=== PATIENT | female | born 1995 | race Caucasian/White ===

== ENCOUNTER → 2020-02-01 | Outpatient (CLI) | payer BC, SELFPAY ==
[2020-02-01 14:19] VITALS: BMI 27.4
[2020-02-03 20:07] LABS: Chlamydia By Nucleic Acid AMP Negative (Negative)
[2020-02-03 20:54] LABS: Gonococcus By Nucleic Acid AMP Negative (Negative)
[2020-02-08 16:23] LABS: HPV Reflexed? NOT INDICATED
== END | disposition home or self-care (01) ==
LOC: LABSPEC 17:01
PROVIDERS: PCP Family Medicine; Referring Provider Nurse Practitioner Women's Health; Visit Provider Nurse Practitioner Women's Health
DX: N89.8 Other specified noninflammatory disorders of vagina (principal); Z12.4 Encounter for screening for malignant neoplasm of cervix
CPT/HCPCS: 87070; 87205; 87491; 87591; 88175; G0145

== ENCOUNTER → 2020-02-15 | Outpatient (CLI) | payer BC, SELFPAY ==
--- NOTE | 2020-02-15 | ECC_PTH ---
PATIENT: UZAIR ROJO [facility] U#:[id number] AGE/SX: 24/F ROOM: RE02/15/[address]: Dr. Alma Eng MD : 1995 BED: DIS: 02/15/2020 SPEC #: [id number] RECD: 02/15/20 18:07 STATUS: VADIM BARRERAAkilah #: [id number] RAFAEL: 02/15/20 00:[address]: Alma Eng DEPT: SURGICAL PATHOLOGY RECD BY: Kelvin Renee Tissues: A - Endocervical B - Uterine cervix, NOS Procedures: Surgery Specimen Level IV HEADER OPERATION: Colposcopy PRE-OP DIAGNOSIS: LGSIL TISSUE SUBMITTED: A - ECC, B - 5 o'clock MICROSCOPIC DIAGNOSIS A. Endocervix, curettings (cell block): Rare detached squamoid cells with moderate to severe squamous dysplasia (HSIL). See comment. B. Cervix at 5 o'clock, biopsy: Moderate to severe squamous dysplasia, SARAN II-III (HSIL). Squamous metaplasia and chronic inflammation. See comment. AM:taylor 02/17/20 COMMENT A & B. Results from immunohistochemistry ([id number]) for surrogate HPV marker (p16) will be reported separately. MICROSCOPIC DESCRIPTION Slides are reviewed. GROSS DESCRIPTION A - Received in fixative is one container labeled with the patient's name and designated endocervix curettings. The specimen consists of a scant amount of soft tissue. The specimen is totally submitted for cell block preparation. B - Received in fixative is one container labeled with the patient's name and designated 5 o'clock. The specimen consists of one irregular fragment of light okeefe soft tissue that measures 0.2 x 0.1 x <0.1 cm. The specimen is totally submitted in one cassette. / AM:taylor 02/16/20 TC:0 CPT: 83252 x2
--- NOTE | 2020-02-15 | IMM_PTH ---
PATIENT: UZAIR ROJO LOC: [facility] U#:[id number] AGE/SX: 24/F ROOM: RE02/15/[address]: Dr. Amla Eng MD : 1995 BED: DIS: 02/15/2020 SPEC #: [id number] RECD: 02/17/20 11:58 STATUS: VAIDM REQ #: [id number] RAFAEL: 02/15/20 00:[address]: Alma Eng DEPT: IMMUNOHISTOCHEMISTRY RECD BY: Doris Contreras Tissues: A - Endocervical B - Uterine cervix, NOS Procedures: p16 (initial) KI-67 (add) P16 (add) PHYSICIAN & INSTITUTION [place] [id number] SPECIMEN INFORMATION: Tissue Source: A - ECC, B - Cervix at 5 o'clock Clinical Info: [facility] Specimen Number: [id number] A & B CPT code: 24886 x2, 86932 x2 METHODOLOGY: Deparaffinized sections of prefer/formalin-fixed tissue or PAP/DQ stained slides are incubated with monoclonal/polyclonal antibodies/oligonucleotide probes. Localization is made via biotin free immunoperoxidase method. Appropriate controls are performed and reacted as expected. Results on target cell population are indicated in the following table: RESULTS: ANTIBODY / CLONE RESULT Block A P16 (E6H4) positive, block-like Ki-67 (30-9) positive, high Block B P16 (E6H4) positive, block-like Ki-67 (30-9) positive, high These tests were developed and their performance characteristics determined by [facility]. They may not have been cleared or approved by the U.S. Food and Drug Administration. The FDA has determined that such clearance or approval is not necessary. The above immunohistochemical/dualISH markers are ordered and reviewed by the Pathologist. INTERPRETATION: A. Endocervix, curettage: Moderate to severe squamous dysplasia (HSIL). B. Cervix at 5 o'clock, biopsy: Moderate to severe squamous dysplasia (HSIL). AM:taylor 02/18/20
[2020-02-15 15:03] VITALS: BMI 27.8
== END | disposition home or self-care (01) ==
PROVIDERS: Visit Provider Obstetrics & Gynecology
DX: R87.612 Low grade squamous intraepithelial lesion on cytologic smear of cervix (LGSIL) (principal)
CPT/HCPCS: 88305; 88341; 88342

== ENCOUNTER 2020-03-14 12:28 | Day surgery (SDC) | payer BC, SELFPAY ==
[2020-03-03 13:53] VITALS: BMI 28.0
[2020-03-10 13:42] LABS: Hematocrit 40.9 % (37-47); Hemoglobin 13.7 g/dL (12.0-15.0); Mean Corp Hgb Conc 33.5 g/dL (32-36); Mean Corpuscular Hgb 31.8 pg (27.0-32.0); Mean Corpuscular Volume 94.9 fL (81-99); Mean Platelet Vol. 10.1 fl (6.2-12.0); Platelet Count 292 K/mm3 (150-450); RBC Distribution Width CV 11.5 % (11.6-14.6); RBC Distribution Width SD 40.4 fl (35.1-43.9); Red Blood Count 4.31 M/mm3 (4.2-5.4); White Blood Count 5.5 K/mm3 (4.4-11.0)
[2020-03-14] VITALS (9 sets, daily range): BP systolic 109–119; BP diastolic 66–80; PULSE 70–96; RESP 16; TEMP 36.9–37; O2SAT 97–100; BMI 28.1
--- NOTE | 2020-03-14 | IMM_PTH ---
PATIENT: UZAIR ROJO [place] [facility] [id number] AGE/SX: 24/F ROOM: RE03/14/[address]: Dr. Alma Eng MD : 1995 BED: DIS: 03/14/2020 SPEC #: [id number] RECD: 03/16/20 11:42 STATUS: VADIM REQ #: [id number] RAFAEL: 03/14/20 00:[address]: Alma Eng DEPT: IMMUNOHISTOCHEMISTRY RECD BY: Doris Contreras ENTERED: 03/16/20 11:43 SP TYPE: IMMUNO OTHR DR: Dr. Markus Valdez MD Tissues: A - UTERINE CERVIX LEEP Procedures: p16 (initial) KI-67 (add) PHYSICIAN & INSTITUTION [place] [phone] SPECIMEN INFORMATION: Tissue Source: A - LEEP of cervix Clinical Info: SARAN III with severe dysplasia Specimen Number: [id number] A1 & A4 CPT code: 77205, 85027 x3 METHODOLOGY: Deparaffinized sections of prefer/formalin-fixed tissue or PAP/DQ stained slides are incubated with monoclonal/polyclonal antibodies/oligonucleotide probes. Localization is made via biotin free immunoperoxidase method. Appropriate controls are performed and reacted as expected. Results on target cell population are indicated in the following table: RESULTS: ANTIBODY / CLONE RESULT Block A1 P16 (E6H4) positive, block staining Ki-67 (30-9) positive, moderate to high Block A4 P16 (E6H4) positive, block staining Ki-67 (30-9) positive, moderate to high These tests were developed and their performance characteristics determined by [facility]. They may not have been cleared or approved by the U.S. Food and Drug Administration. The FDA has determined that such clearance or approval is not necessary. The above immunohistochemical/dualISH markers are ordered and reviewed by the Pathologist. INTERPRETATION: A. Cervix, LEEP conization: Mild and focal moderate squamous dysplasia. SJ:taylor 03/17/20
--- NOTE | 2020-03-14 12:20 | PCM.HPOB.BLA ---
- Problem List (1) HGSIL (high grade squamous intraepithelial dysplasia) Status: Acute History and Physical Date of Admission: 03/14/20 Intake Vital Signs 03/03/20 Height 5 ft 4 in 03/03/20 Weight: 163 lb 6 oz 03/03/20 BMI 28.0 03/03/20 BP 106/66 Intake Visit Reasons: Discuss biopsies Paper Feeder Required: No Is patient in pain?: No Allergies No Known Allergies Allergy (Verified 03/03/20 13:53) Medications bupropion HCl 150 mg tablet,12 hr sustained-release 150 mg PO BID 02/01/20 [History Confirmed 03/03/20] clobetasol 0.05 % topical cream 1 applic TOPICAL .COMPLEX #15 g 02/01/20 [Rx Confirmed 03/03/20] levonorgestrel 20 mcg/24 hours (5 yrs) 52 mg intrauterine device 1 device INTRAUTERINE ONCE 02/01/20 [History Confirmed 03/03/20] Post menopausal: No Patient : No : No PFSH Medical History Anxiety and depression (Acute) Surgical History History of surgery on arm (Acute) Family History Mother Diabetes Father Heart disease Cardiomyopathy Social History (Updated 03/03/20 @ 16:[address] Alma Eng MD) Smoking Status: Never smoker alcohol intake: never substance use type: does not use caffeine: No what type of physical activity do you participate in: weight training frequency: 5-6 times per week seatbelt use: always do you feel safe at home: Yes additional social history: [employer] in [facility] Discuss biopsies: Details: UZAIR ROJO is a 24 year old who presents for results follow-up after colposcopy. Patient denies complaints today. Pregancy History 0 Elective abortions Hx Para Spontaneous abortions Hx # Term Pregnancies Ectopic pregnancies Hx # Pregnancies Multiple births # of living children ROS Const Reports system reviewed and no additional complaints, except as documented Card Reports system reviewed and no additional complaints, except as documented Resp Reports system reviewed and no additional complaints, except as documented GI Reports system reviewed and no additional complaints, except as documented Reports system reviewed and no additional complaints, except as documented Musc Reports system reviewed and no additional complaints, except as documented all other systems reviewed and negative Exam Const General: cooperative, healthy appearing, comfortable, well developed, well groomed Neck Neck: normal visual inspection, full ROM Resp Effort & Inspection: normal respiratory effort, able to speak in complete sentences, symmetric chest movement Cardio Rate: regular rate Skin General: no rashes or lesions noted, elasticity normal, turgor normal Lesions: no lesions Rashes: no rashes Neuro General: alert, awake, oriented x3 Cranial Nerves: CN's II-XI intact bilaterally, PERRL, EOM intact bilaterally Cognition: normal cognition Speech: speech normal Gait: normal gait Extrem General: normal to inspection, full ROM, no pedal edema Psych Appearance: grossly normal Mental Status: mental status grossly normal Mood: congruent mood Affect: normal affect Speech and Movement: speech and movement normal Attitude: cooperative Thought Process: normal Thought Content: normal Assessment & Plan 1. SARAN III with severe dysplasia D06.9 Plan Patient presents for colposcopy results. Pap was LSIL. Colpo results showed: A. Endocervix, curettings (cell block):Rare detached squamoid cells with moderate to severe squamous dysplasia (HSIL).See comment.B. Cervix at 5 o?clock, biopsy:Moderate to severe squamous dysplasia, SARAN II-III (HSIL).Squamous metaplasia and chronic inflammation Discussed with patient that with SARAN II-III recommend proceeding with excisional procedure (LEEP). The risks, benefits, indications, and alternatives to the procedure were discussed with the patient including bleeding, infection, and damage to surrounding structures. Agreeable to blood products if medically necessary. Discussed risk of infection relatively low, but would typically present with foul smelling discharge or fevers after delivery. Discussed risk of damage to cervix and uterus. Discussed that this can rarely result in excessive bleeding that could potentially result in need for hysterectomy. Also discussed possible impact on future fertility. Patient reports that she has no plans to have children. All questions answered and patient agrees to proceed. Handouts provided from up-to-date and ACOG regarding procedure. Coding Level of Care Code Off vis,est,level 3 Diagnoses SARAN III with severe dysplasia D06.9 UPDATE- I have seen the patient and performed any clinically relevant updates to the history and physical exam. Alma Eng MD
[2020-03-14 12:58] LABS: Internal QC Validated? YES +Cl - CLEAR BKGD; Pregnancy, Urine Negative Negative
[2020-03-14] MEDS: Lactated Ringers 1,000 ML 100 ML IV (13:12)
--- NOTE | 2020-03-14 14:15 | CER_PTH ---
PATIENT: UZAIR ROJO [place] [facility] [place][id number] AGE/SX: 24/F ROOM: RE03/14/[address]: Dr. Alma Eng MD : 1995 BED: DIS: 03/14/2020 SPEC #: [id number] RECD: 03/15/20 07:40 STATUS: VADIM REAkilah #: [id number] RAFAEL: 03/14/20 14:[address]: Alma Eng DEPT: SURGICAL PATHOLOGY RECD BY: Roxanna Moseley ENTERED: 03/15/20 07:52 SP TYPE: CERV OTHR DR: Dr. Markus Valdez MD Tissues: A - UTERINE CERVIX LEEP B - Endocervical Procedures: Surgery Specimen Level IV Surgery Specimen Level V HEADER OPERATION: LEEP cone PRE-OP DIAGNOSIS: SARAN III with severe dysplasia TISSUE SUBMITTED: A - LEEP of cervix, B - Endocervical curettings MICROSCOPIC DIAGNOSIS A. Cervix, LEEP conization: Mild and moderate squamous dysplasia with HPV changes (HGSIL and SARAN I-II). Chronic cystic cervicitis and squamous metaplasia. Resection margins are free of dysplastic changes. See comment. B. Endocervical curettings: Fragments of benign endocervical epithelium, blood and mucous, negative for dysplasia. SJ:rg 03/16/20 COMMENT A. Immunohistochemistry ([id number]) for surrogate HPV marker (p16) supports the above diagnosis. Please make reference to previous specimen ([id number]) endocervix, curettings with diagnosis of rare detached squamoid cells with moderate to severe squamous dysplasia and cervix at 5 o'clock, biopsy with diagnosis of moderate to severe squamous dysplasia. This case has been reviewed in consultation with Dr. Barahona who concurs with the above diagnosis. MICROSCOPIC DESCRIPTION Slides are reviewed. GROSS DESCRIPTION A - Received in fixative is one container labeled with the patient's name and designated LEEP of cervix. The specimen consists of a okeeef, indurated piece of tissue consistent with LEEP conization measuring 1.7 x 1.7 cm and up to 1 cm in length. The cervical opening is slit-like in contour. Focal mucoid tissue is noted adherent to the cervix. No mucosal lesion is identified. The mucosal margin is inked black and endocervical margin is inked blue. The specimen is not oriented. Sections do not reveal any mass lesion. The entire specimen is submitted in four cassettes with each cassette containing one quadrant. B - Received in fixative is one container labeled with the patient's name and designated endocervical curettings. The specimen consists of multiple fragments of hemorrhagic mucoid tissue that in aggregate measure 2.5 x 0.5 x 0.1 cm. The specimen is totally submitted in one cassette. / SJ:rg 03/15/20 TC:5 CPT: 93809, 96327
--- NOTE | 2020-03-14 15:03 | PCM.DC.LEE ---
Discharge Diet: No Restrictions Discharge Activity: Return to Normal Activity, May not drive while taking narcotic pain medications. May resume sexual activity in: 4 weeks - nothing in the vagina for 4 weeks. Call your doctor if you observe: Fever of 101 or Higher, Using more than one pad per hour Allergies/Adverse Reactions: Allergies No Known Allergies Allergy (Verified 03/14/20 12:39) Medications to take at Discharge bupropion HCl 150 mg tablet,12 hr sustained-release 150 mg PO BID 02/01/20 levonorgestrel 20 mcg/24 hours (5 yrs) 52 mg intrauterine device 1 device INTRAUTERINE ONCE 02/01/20 Ibuprofen [Motrin] 600 mg PO Q6H PRN PRN #30 tab 03/14/20 Ondansetron HCl [Zofran] 4 mg PO 4X/DAY PRN PRN #30 tab 03/14/20 Oxycodone [Oxyir] 5 mg PO Q6H PRN PRN 7 Days #5 tab 03/14/20 The following prescriptions were given: Ibuprofen [Motrin] 600 mg PO Q6H PRN PRN #30 tab PRN Reason: Pain Transmission Status[id number] Oxycodone [Oxyir] 5 mg PO Q6H PRN PRN 7 Days #5 tab PRN Reason: Pain Score 6-10/10 Transmission Status: Received by [facility] Ondansetron HCl [Zofran] 4 mg PO 4X/DAY PRN PRN #30 tab PRN Reason: Nausea Transmission Status: Received by [id number] Primary Care Physician: Markus Valdez MD [Primary Care Provider] - Test Results: Test results from this visit will be discussed in further detail at your follow-up appointment, if applicable.
[2020-03-14] MEDS: Iodine/Potassium Iodide 14ML Bottle 1 DRP TOPICAL (15:30)
[2020-03-14] MEDS: FERRIC SUBSULFATE 8 GM SOLN (15:31)
[2020-03-14] MEDS: Lactated Ringers 1,000 ML 1000 ML IV (15:53)
--- NOTE | 2020-03-14 17:13 | PCM.OPRPT ---
Problem List (1) HGSIL (high grade squamous intraepithelial dysplasia) Status: Acute Report of Operation Date of Procedure: 03/14/20 Pre-Operative Diagnosis: SARAN III, positive ECC Post-Operative Diagnosis: Same Surgery/Procedure Performed:: LEEP, ECC Description of Surgical Findings:: Normal-appearing cervix. Small nonstaining area at that squamocolumnar junction at 2:00. private duty lpn: None Type of Anesthesia:: MAC Specimen's removed: LEEP of cervix, ECC Estimated Blood Loss (mL): 10 cc Description of Procedure: Patient was taken to the operating room where anesthesia was obtained without difficulty. She was prepped and draped in the dorsal lithotomy position with yellowfin stirrups. A insulated speculum was placed in the vagina and good visualization of the cervix was noted. The patient's IUD strings were tucked inside the cervical canal to try to preserve the strings. Lugol's solution was applied and the above findings were noted. Cc of 1% lidocaine were used to perform a paracervical block. A 1 cm loop was used on 70 W of pure cut energy to perform a LEEP procedure in 1 pass. An ECC was then performed. Hemostasis was attained with the rollerball. The IUD strings were then teased out of the endocervical canal and noted to be intact. Monsel solution was then applied to the LEEP bed. Hemostasis was noted. The procedure was deemed complete. All counts were correct x2 the. The patient was awakened from anesthesia and taken recovery room in stable condition. - Complications None - Admit VTE Documentation VTE Present on Admission: No VTE Mechan Device Prophylaxis: [facility] Prophylaxis ordered?: No Multi Select Codes - Urinary/Genital Urinary/Genital CPT Codes: 43392 Endocervical curettage, 86723 LEEP
== END 2020-03-14 16:45 | disposition home or self-care (01) ==
LOC: SDC 12:31 → AC 12:37
PROVIDERS: Anesthesiology; PCP Family Medicine; Referring Provider Obstetrics & Gynecology; Visit Provider Obstetrics & Gynecology
PROC: 0UBC7ZZ Excision of Cervix, Via Natural or Artificial Opening (ICD-10-PCS; CPT 57522; principal; 2020-03-14 14:00)
DX: D06.9 Carcinoma in situ of cervix, unspecified (principal); Z11.59 Encounter for screening for other viral diseases; F41.9 Anxiety disorder, unspecified; F32.9 Major depressive disorder, single episode, unspecified; Z79.899 Other long term (current) drug therapy
CPT/HCPCS: 00940; 57522; 36415; 81025; 85027; 86850; 86900; 86901; 87426; 88305; 88307; 88341; 88342; J7120; J2405

== ENCOUNTER → 2020-09-28 | Outpatient (CLI) | payer OTHER, SELFPAY ==
[2020-09-28 15:09] VITALS: BMI 28.3
[2020-10-03 20:24] LABS: HPV APTIMA, High Risk Negative (Negative)
== END | disposition home or self-care (01) ==
LOC: LABSPEC 16:37
PROVIDERS: PCP Family Medicine; Visit Provider Obstetrics & Gynecology
DX: R87.613 High grade squamous intraepithelial lesion on cytologic smear of cervix (HGSIL) (principal)
CPT/HCPCS: 87624; 88175; G0145

== ENCOUNTER 2021-06-20 16:49 | Outpatient (CLI) | payer OTHER, SELFPAY ==
[2021-06-27 00:06] LABS: HPV Genotype 16, Aptima Negative (Negative)
[2021-06-27 14:21] LABS: HPV APTIMA, High Risk Positive (Negative); HPV Genotype 18,45 Aptima Negative (Negative)
== END 2021-06-20 23:59 | disposition home or self-care (01) ==
LOC: LABSPEC 16:51
PROVIDERS: PCP Family Medicine; Visit Provider Obstetrics & Gynecology
DX: Z12.4 Encounter for screening for malignant neoplasm of cervix (principal)
CPT/HCPCS: 87624; 88175; G0145

== ENCOUNTER 2021-07-19 10:52 | Outpatient (CLI) | payer OTHER, SELFPAY ==
--- NOTE | 2021-07-19 10:30 | VUL_PTH ---
PATIENT: UZAIR ROJO LOC: [facility] U#:[id number] AGE/SX: 26/F ROOM: RE07/19/[address]: Dr. Tamara Bello MD : 1995 BED: DIS: 07/19/2021 SPEC #: [id number] RECD: 07/19/21 13:07 STATUS: VADIM HICKS #: [id number] RAFAEL: 07/19/21 10:[address]: Tamara Bello DEPT: SURGICAL PATHOLOGY RECD BY: Roxanna Moseley ENTERED: 07/19/21 13:30 SP TYPE: VULVA BX OTHR DR: MD Dr. Renay Waggoner DO Tissues: Vulva, NOS Procedures: Surgery Specimen Level IV HEADER OPERATION: Vulvar biopsy PRE-OP DIAGNOSIS: Lichen sclerosus TISSUE SUBMITTED: Vulva MICROSCOPIC DIAGNOSIS Vulva, biopsy: A piece of squamous mucosa with hyperkeratosis. See comment. JAYSON:taylor 07/20/2021 COMMENT Definite changes consistent with lichen sclerosus are not seen. Clinical correlation and appropriate follow up are necessary. MICROSCOPIC DESCRIPTION Slides are reviewed. GROSS DESCRIPTION Received is one container labeled with the patient's name and not further designated. The specimen consists of one irregular fragment of light okeefe soft tissue that measures 0.3 x 0.2 x 0.1 cm. The specimen is totally submitted in one cassette. / JAYSON:taylor 07/19/2021 TC:5 CPT: 47678
[2021-07-19 11:44] LABS: Estradiol 51.4 pg/mL; Follicle Stimulating Hormone 6.5 mIU/mL
[2021-07-19 11:46] LABS: Progesterone Level 0.88 ng/mL (See Comment)
[2021-07-21 22:42] LABS: Testosterone Free 4.6 pg/mL (0.0-4.2)
== END 2021-07-19 23:59 | disposition home or self-care (01) ==
LOC: PAVLAB 10:53 → LABSPEC 13:14
PROVIDERS: PCP Family Medicine; Referring Provider Obstetrics & Gynecology; Visit Provider Obstetrics & Gynecology
DX: N90.4 Leukoplakia of vulva (principal)
CPT/HCPCS: 36415; 82627; 82670; 83001; 84144; 84402; 88305; 82626

== ENCOUNTER 2021-07-24 11:44 | Outpatient (CLI) | payer OTHER, SELFPAY ==
--- NOTE | 2021-07-24 11:49 | US_ITS ---
STUDY: ULTRASOUND OF THE FEMALE PELVIS - COMPLETE REASON FOR EXAM: Female, 26 years old. Pelvic pain LMP: Unknown. TECHNIQUE: Transabdominal and Transvaginal TECHNICAL QUALITY: Adequate. COMPARISON: None. FINDINGS: The uterus is anteverted and is in a midline position. The uterus measures 6.1 x 3.6 x 3.1 cm. Normal uterine cervix. The endometrium measures 2.7 mm in thickness, and is hyperechoic. There is no demonstrated endometrial mass. There is no demonstrated myometrial mass. I.U.D. - The patient does have an I.U.D. IUD noted in satisfactory position The right ovary is visualized. The right ovary measures 3.6 x 2.8 x 2.7 cm. . There is no visualized right adnexal mass or complex lesion. There is normal arterial and normal venous vascularity. The left ovary is visualized. The left ovary measures 3.8 x 2.6 x 2.2 cm. There is normal arterial and normal venous vascularity. No suspicious adnexal mass. There are similar sized ovarian cysts along the periphery of both ovaries and a string of naye configuration suggesting underlying PCOS. Please confirm with lab results There is no fluid in the cul-de-sac. The bladder is sonographically normal US/Transvaginal Non- IMPRESSION: Sonographically normal uterus, IUD in satisfactory position Similar sized follicles around the periphery of both ovaries raises the likelihood of PCOS. Please correlate with lab results Electronically Signed: Jose Roberto Curtis MD at 10:19 EDT ,
--- NOTE | 2021-07-24 11:49 | US_ITS ---
STUDY: ULTRASOUND OF THE FEMALE PELVIS - COMPLETE REASON FOR EXAM: Female, 26 years old. Pelvic pain LMP: Unknown. TECHNIQUE: Transabdominal and Transvaginal TECHNICAL QUALITY: Adequate. COMPARISON: None. FINDINGS: The uterus is anteverted and is in a midline position. The uterus measures 6.1 x 3.6 x 3.1 cm. Normal uterine cervix. The endometrium measures 2.7 mm in thickness, and is hyperechoic. There is no demonstrated endometrial mass. There is no demonstrated myometrial mass. I.U.D. - The patient does have an I.U.D. IUD noted in satisfactory position The right ovary is visualized. The right ovary measures 3.6 x 2.8 x 2.7 cm. . There is no visualized right adnexal mass or complex lesion. There is normal arterial and normal venous vascularity. The left ovary is visualized. The left ovary measures 3.8 x 2.6 x 2.2 cm. There is normal arterial and normal venous vascularity. No suspicious adnexal mass. There are similar sized ovarian cysts along the periphery of both ovaries and a string of naye configuration suggesting underlying PCOS. Please confirm with lab results There is no fluid in the cul-de-sac. The bladder is sonographically normal US/Pelvic (Non ) IMPRESSION: Sonographically normal uterus, IUD in satisfactory position Similar sized follicles around the periphery of both ovaries raises the likelihood of PCOS. Please correlate with lab results Electronically Signed: Jose Roberto Curtis MD at 10:19 EDT ,
== END 2021-07-24 23:59 | disposition home or self-care (01) ==
LOC: US 11:46
PROVIDERS: PCP Family Medicine; Referring Provider Obstetrics & Gynecology; Visit Provider Obstetrics & Gynecology
DX: L90.0 Lichen sclerosus et atrophicus (principal)
CPT/HCPCS: 76830; 76856

== ENCOUNTER 2021-11-06 08:38 | Day surgery (SDC) | payer OTHER, SELFPAY ==
[2021-11-06] VITALS (8 sets, daily range): BP systolic 91–106; BP diastolic 57–71; PULSE 64–92; RESP 16; TEMP 36.2–36.5; O2SAT 94–98; BMI 30.1
--- NOTE | 2021-11-06 07:00 | PCM.HP.BLA ---
History and Physical Date of Admission: 11/06/21 R#: [id number] Acct: [id number] Name:UZAIR KAUFMAN Rep #: [id number] : 1995 ? ? Provider: Dr. Renay Sanchez, DO Age/Sex:? 26/F ? ? [place] [facility] [place] Status: Signed Intake Vital Signs ? 10/25/2213:43 10/25/2213:44 Height 5 ft 4 in 5 ft 4 in Weight: 175 lb 8 oz ? BMI 30.1 ? BP 110/72 ? Intake Visit Reasons:?BS and IUD removal Hat And Cap Opener Required: No Is patient in pain?: No Allergies No Known Allergies Allergy (Verified 10/25/21 14:43) Medications bupropion HCl 150 mg tablet,12 hr sustained-release (Wellbutrin SR) 150 mg PO BID 02/01/20 [History Confirmed 10/25/21] levonorgestrel 20 mcg/24 hours (7 yrs) 52 mg intrauterine device (Mirena) 1 device intrauterine ONCE 02/01/20 [History Confirmed 10/25/21] hydrocortisone 2.5 % topical ointment 1 applic topical BID #28.35 grams 07/20/21 [Rx Confirmed 10/25/21] spironolactone 50 mg tablet 50 mg PO DAILY #30 tabs 08/09/21 [Rx Confirmed 10/25/21] Post menopausal: No Patient : No : No PFSH Medical History? Anxiety and depression HGSIL (high grade squamous intraepithelial dysplasia) Surgical History? H/O LEEP History of surgery on arm Family History? Mother DiabetesFather Heart disease Cardiomyopathy Social History? Smoking Status:? Never smoker alcohol intake:? never substance use type:? does not use caffeine:? No what type of physical activity do you participate in:? weight training frequency:? 5-6 times per week seatbelt use:? always do you feel safe at home:? Yes additional social history:? singles- [employer] in [place] HPI BS and IUD removal Details: UZAIR ROJO is a 26 year old who presents for Pregancy History ? ? ? 0 ? Elective abortions ? Hx Para ? Spontaneous abortions ? Hx # Term Pregnancies ? Ectopic pregnancies ? Hx # Pregnancies ? Multiple births ? # of living children ? ROS Const ROS Unobtainable: All systems reviewed & are unremarkable except as noted in H Resp Resp: Reports system reviewed and no additional complaints, except as documented; Denies cough GI GI: Reports as per HPI Psych Psych: Reports system reviewed and no additional complaints, except as documented Exam Const General: cooperative, healthy appearing, comfortable and no acute distress HENMT Head: normal to inspection Neck Neck: normal visual inspection Resp Effort & Inspection: normal respiratory effort Skin General: no rashes or lesions noted Extrem General: normal to inspection Psych Appearance: grossly normal Speech and Movement: speech and movement normal Coding Level of Care Code Off vis,est,level 4 Diagnoses PCOS (polycystic ovarian syndrome)? E28.2 Hirsutism? L68.0 IUD contraception? Z97.5 Assessment and Plan Assessment and Plan (1) PCOS (polycystic ovarian syndrome): ?Status:?Acute (2) Hirsutism: ?Status:?Acute ?Comment: Lab evaluation for PCOS ruled out plan follow-up after lab testing.? Consider spironolactone. (3) IUD contraception: ?Status:?Acute ?Comment: Richar September 2017 Plan After discussing the patient's diagnosis and treatment plan options, patient wishes to proceed with surgical management.? I have discussed with the patient the risks, benefits, and alternatives of the procedure which include but are not limited to risks of anesthesia, bleeding, infection, possible damage to bowel, bladder, or surrounding vasculature which could lead to additional surgery to evaluate any complications.? Patient agrees to procedure and wishes to proceed.? ACOG/uptodate references given for additional information regarding procedure.? plan for laparoscopic bs and removal of IUD. consent signed UPDATE- I have seen the patient and performed any clinically relevant updates to the history and physical exam. Renay Sanchez, DO
[2021-11-06 09:34] LABS: Internal QC Validated? YES +Cl - CLEAR BKGD; Pregnancy, Urine Negative Negative
--- NOTE | 2021-11-06 09:36 | DCINST_ITS ---
Discharge Instructions Diet Discharge Diet: No restrictions Activity Discharge Activity: Return to Normal Activity, May Not Drive (for two weeks or while taking narcotic pain medications.), May Shower and May Take a Tub Bath (in 7 days) May resume sexual activity in: 1 week Weight Bearing Status: Full weight bearing Dressing / Incision Call your doctor if you observe: Using more than 1 pad per hour, Shortness of breath, Chest pain and Uncontrolled pain Suture Line Care: Avoid Pulling/Pushing and Avoid Pinching/Bending Remove Dressing in: 1 week (if present) Cleanse incision/area with: Soap & Water and Keep Dressing Clean & Dry Follow Up Care Please Follow Up With: Renay Sanchez DO When: Call to make an appointment with your doctor for a follow up incision check in 1-2 weeks. Test Results: Test results from this visit will be discussed in further detail at your follow- up appointment, if applicable. Discharge Plan Admission Primary Reason for Your Visit: laparoscopic bilateral salpingectomy Attending Provider: Renay Sanchez Primary Care Provider: Care Physician,Gia Primary Discharge Orders/Prescriptions Prescriptions: New ibuprofen 600 mg tablet 600 mg PO Q6H PRN (Reason: pain) 7 Days Qty: 30 0RF oxycodone-acetaminophen [Percocet] 5-325 mg tablet 1 tab PO Q4H PRN (Reason: pain) 3 Days Qty: 10 0RF ondansetron 4 mg tablet,disintegrating 4 mg PO Q8H PRN (Reason: nausea and vomiting) Qty: 14 0RF Continued bupropion HCl [Wellbutrin SR] 150 mg tablet sustained-release 12 hr 150 mg PO BID levonorgestrel 20 mcg/24 hours (5 yrs) 52 mg intrauterine device 20 mcg/24 hours (5 yrs) 52 mg intrauterine device 1 device intrauterine ONCE Rx Instructions: as a single dose Referrals / Follow Up: Care PhysicianGia Primary [Primary Care Provider] - Disposition Disposition (needs filled in before D/C Order can be placed): Home, Self Care
--- NOTE | 2021-11-06 10:15 | FALS_PTH ---
PATIENT: UZAIR ROJO [place] [facility] [place][id number] AGE/SX: 26 ROOM: RE11/06/[address]: Dr. Renay Sanchez DO : 1995 BED: DIS: 11/06/2021 SPEC #: [id number] RECD: 11/06/21 12:23 STATUS: VADIM FABIOLA #: [id number] RAFAEL: 11/06/21 10:[address]: Renay Sanchez DEPT: SURGICAL PATHOLOGY RECD BY: Kelvin Renee ENTERED: 11/06/21 13:13 SP TYPE: FALL TUBES OTHR DR: No Primary Care Phys Tissues: Fallopian tube Procedures: Surgery Specimen Level II HEADER OPERATION: Laparoscopic salpingectomy, IUD removal PRE-OP DIAGNOSIS: IUD contraception, desires sterilization TISSUE SUBMITTED: Bilateral fallopian tubes MICROSCOPIC DIAGNOSIS Bilateral fallopian tubes, salpingectomy: Bilateral fallopian tubes, no pathologic diagnosis. Bilateral paratubal cysts. JAYSON:taylor 11/07/2021 MICROSCOPIC DESCRIPTION Slides are reviewed. GROSS DESCRIPTION Received in fixative is one container labeled with the patient's name and designated bilateral fallopian tubes. The specimen consists of bilateral fallopian tubes including fimbrial ends measuring 6 cm in length and 0.6 cm in diameter and 5.5 cm in length and 0.6 cm in diameter. The fallopian tubes are not identified as right or left. Both fallopian tubes also show paratubal cysts measuring 0.5 cm in greatest dimension. Sections reveal unremarkable cut surfaces. Sheet Metal Installer sections are submitted in two cassettes as follows: 1 ? one fallopian tube and paratubal cyst, 2 ? second fallopian tube and paratubal cyst. / JAYSON:taylor 11/06/2021 TC:5 CPT: 54480 x2
[2021-11-06] MEDS: Bupivacaine Mpf 0.5% 30 ML VIAL (10:38)
--- NOTE | 2021-11-06 10:53 | OP.PCM_ITS ---
Problems Associated Problem List Diagnoses (1) IUD contraception: (2) Contraceptive management: Operative Report Date of Procedure: 11/06/21 preoperative diagnosis: desires permanent sterilization Postoperative diagnosis: Desires permanent sterilization Procedure: Laparoscopic bilateral salpingectomy and removal of IUD Surgeon: Dr. Renay Moss DO Sap Solution Manager Consultant: Mary Anne Mulligan Estimated blood loss: 5 cc Urine output: 300 cc Fluids: 1300 cc Details of the procedure: Patient was brought to the operating room where general anesthesia was found to be adequate. She was prepped and draped in the normal sterile fashion her legs were placed in stirrups a weighted speculum was placed in the vagina. The anterior lip of the cervix was grasped with a single-tooth tenaculum. The IUD was removed without difficulty using the ringed forceps. The uterus was sounded to 8 cm. A uterine manipulator was inserted without difficulty. The speculum was removed and gloves were changed. Attention was turned towards the abdomen. 0.5% Marcaine was injected into the umbilicus and a 5 mm incision was made with an 11 blade scalpel. A 5 mm trocar was inserted into the abdomen under direct visualization using the 5 mm laparoscope. A left lower quadrant 5 mm incision was also made followed by insertion of a 5 mm trocar. Approximately 5 cm above the pubic symphysis in the midline after Marcaine injection a mini grasper and was inserted into the abdomen under direct visualization. The uterus was elevated and manipulated to the right side the left fallopian tube was first grasped with a mini grasper and the underlying mesosalpinx was cauterized and cut to the level of the cornua using the LigaSure device. The fallopian tube was removed through the trocar. The same procedure was performed on the right side. both fallopian tubes were passed off for pathology analysis. Excellent hemostasis was noted at all operative sites. All instruments were removed from the abdomen and CO2 gas was escape from the abdomen. The skin was closed with a 4-0 Monocryl subcuticular stitch and sealed with surgical glue. The vaginal manipulator was removed and a vaginal sweep was performed no foreign objects were left in the vagina. The patient tolerated the procedure well sponge lap needle counts were correct x2 and she is now being brought to the recovery room in stable condition Complications: None Multi Select Codes Urinary/Genital Urinary/Genital CPT Codes: 55554 Laproscopic BS/O (laparoscopic bilateral sapingectomy and removal of intrauterine device. )
== END 2021-11-06 13:07 | disposition home or self-care (01) ==
LOC: SDC 08:45 → AC 08:46
PROVIDERS: Anesthesiology; Referring Provider Obstetrics & Gynecology; Visit Provider Obstetrics & Gynecology
PROC: (CPT 58661; principal; 2021-11-06 10:00)
DX: Z30.2 Encounter for sterilization (principal); E28.2 Polycystic ovarian syndrome; N83.8 Other noninflammatory disorders of ovary, fallopian tube and broad ligament; F41.9 Anxiety disorder, unspecified; F32.A Depression, unspecified; Z79.899 Other long term (current) drug therapy; Z30.432 Encounter for removal of intrauterine contraceptive device; L68.0 Hirsutism
CPT/HCPCS: 58661; 58301; 00840; 81025; 88302; J7120; J2405

== ENCOUNTER → 2023-04-08 | Outpatient (CLI) | payer OTHER, SELFPAY ==
[2023-04-12 17:07] LABS: HPV APTIMA, High Risk Negative (Negative)
== END | disposition home or self-care (01) ==
LOC: LABSPEC 16:54
PROVIDERS: Visit Provider Nurse Practitioner Women's Health
DX: Z12.4 Encounter for screening for malignant neoplasm of cervix (principal)
CPT/HCPCS: 87624; 88175; G0145

== ENCOUNTER → 2023-04-09 | Outpatient (CLI) | payer OTHER, SELFPAY ==
[2023-04-09 11:53] LABS: Hemoglobin A1c 4.9 % (3.8-5.6)
[2023-04-09 11:55] LABS: Vitamin D,25 Hydroxy 34.5 ng/mL
[2023-04-09 12:01] LABS: Cholesterol 192 mg/dL (200); High Density Lipoprotein 50 mg/dL; T4 Free Direct 1.08 ng/dL (0.76-1.46); Thyroid Stim Hormone (TSH) 2.74 uIU/mL (0.358-3.74); Triglycerides 201 mg/dL; Very Low Density Lipoprotein 40 mg/dL (5-40)
[2023-04-10 04:07] LABS: Thyroid Peroxidase AB < 9 IU/mL (0-34)
== END | disposition home or self-care (01) ==
PROVIDERS: Referring Provider Nurse Practitioner Women's Health; Visit Provider Nurse Practitioner Women's Health
DX: L68.0 Hirsutism (principal); E28.2 Polycystic ovarian syndrome; L70.9 Acne, unspecified; Z13.21 Encounter for screening for nutritional disorder
CPT/HCPCS: 36415; 80061; 82306; 83036; 84439; 84443; 86376

== ENCOUNTER 2023-09-03 12:52 | Emergency (ER) | payer OTHER, SELFPAY ==
[2023-09-03 12:54] VITALS: BP 133/99; PULSE 82; RESP 16; TEMP 36.7; O2SAT 98; BMI 28.8
--- NOTE | 2023-09-03 13:47 | EKG12_ITS ---
Test Reason : Blood Pressure : / mmHG Vent. Rate : 071 BPM Atrial Rate : 071 BPM P-R Int : 138 ms QRS Dur : 078 ms QT Int : 368 ms P-R-T Axes : 067 019 036 degrees QTc Int : 399 ms Normal sinus rhythm Low voltage QRS Borderline ECG Confirmed by MALATHI ROBLEDO, BARBARA ([id number]), news video editor MARLEN VALDEZ ([id number]) on 09/08/2023 10:04:34 AM Referred By: Confirmed By:ANAND SERVIN MD
[2023-09-03 13:52] VITALS: BP 137/57; PULSE 74; RESP 16; O2SAT 99
--- NOTE | 2023-09-03 13:53 | NURSING ---
NO OLD EKGS
[2023-09-03 14:00] VITALS: PULSE 73; RESP 16; O2SAT 99
--- NOTE | 2023-09-03 14:35 | EX.ED.VIS.PS ---
HPI HPI - Psych History of Present Illness Chief Complaint: Suicidal Informant: patient Narrative Narrative: 28-year-old female presenting to the emergency room with depression and anxiety. Patient states that for most of her post adolescent life she has suffered from anxiety and depression. She states she has been to therapy seen multiple providers and has tried medications. Most recently was on Wellbutrin which was tapered off at the end of last year. 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 She states that she has good responsibility with her work but she thinks about it all the time. She states that she constantly worries. She woke up yesterday feeling dramatically different from a mental health standpoint than she has in the past. She is afraid that she may harm herself. She has no specific plan and does not feel intent. She has never self-harm in the past. She states she has reached out to family and her significant other and has not gotten the support that she feels she needs. PFSH PFSH Medical History Anxiety and depression HGSIL (high grade squamous intraepithelial dysplasia) History of IBS Marijuana use Non-smoker Wears contact lenses Wears glasses Allergy/AdvReac Type Severity Reaction Status Date / Time No Known Allergies Allergy Verified 09/03/23 12:58 Family History Mother Diabetes Father Heart disease Cardiomyopathy Surgical History H/O LEEP History of surgery on arm Status post tubal ligation Social History Smoking Status: Never smoker alcohol intake: never substance use type: does not use caffeine: No what type of physical activity do you participate in: weight training frequency: 5-6 times per week seatbelt use: always do you feel safe at home: Yes additional social history: singles- [employer] in [facility] ED Constitutional Constitutional ED: Denies chills or weight loss Eyes Eyes: Denies change in vision or diplopia ENT ENT ED: Denies ear pain, rhinorrhea or sore throat Cardiovascular Cardiovascular: Denies chest pain, orthopnea, palpitations or racing heartbeat Respiratory/Chest Respiratory/Chest: Denies cough, dyspnea or orthopnea Gastrointestinal Gastrointestinal: Denies abdominal pain, diarrhea, nausea or vomiting Genitourinary Genitourinary ED: Denies dysuria, hematuria or urinary frequency Musculoskeletal Musculoskeletal: Denies arthralgias or myalgias Integumentary Denies abscess or rash Neurologic Neurologic: Denies headache(s) or weakness Psychiatric Psychiatric: Reports anxiety, depression, suicidal ideation and suicidal thoughts Endocrine Endocrinology: Denies polydipsia, polyphagia or polyuria Allergic/Immunologic Allergic/Immunologic ED: Denies mouth swelling, tongue swelling or urticaria EXAM Physical Exam Const Vital Signs: 09/03/23 12:54 09/03/23 13:52 09/03/23 14:00 Temperature 98.1 F Temperature Source Temporal Pulse Rate 82 74 73 Respiratory Rate 16 16 16 Blood Pressure 133/99 H 137/57 H Blood Pressure Mean 110 83 Pulse Ox 98 99 99 Oxygen Delivery Method Room Air Room Air Room Air 09/03/23 15:00 Temperature Temperature Source Pulse Rate 81 Respiratory Rate 18 Blood Pressure Blood Pressure Mean Pulse Ox 99 Oxygen Delivery Method Room Air Positive well nourished and well developed General Appearance ED: well developed HEENT Reports normocephalic, head/scalp atraumatic and moist mucous membranes Eyes PERRL and EOMs intact bilaterally Neck no lymphadenopathy, supple and no JVD Resp normal respiratory effort and clear to auscultation bilaterally Cardio regular rate, regular rhythm and no murmurs GI normal to inspection, nondistended, normoactive bowel sounds and non-tender Palpation: soft Back/Spine no CVA tenderness and normal ROM Extremity normal to inspection General Extremety ED: Negative for edema General Extremity: Negative for edema Neuro oriented x3 and CN's II-XII intact bilaterally Sensorium / Orientation: alert Motor Exam: strength 5/5 throughout Psych cooperative Appearance: grossly normal Activity / Motor Behavior: appropriate eye contact and psychomotor agitation Speech: pressured Mood & Affect: depressed, anxious and tearful Thought Process: racing thoughts Thought Content: other Thoughts of self-harm Attention / Concentration: attention grossly intact Memory / Cognition: memory grossly intact Skin no rashes or lesions noted and no wounds MDM MDM MDM Narrative Medical decision making narrative: Basic blood work was obtained. This is essentially normal including TSH liver panel BMP and CBC. Toxicology with an alcohol less than 3. Care of the patient's to be checked out to the evening physician. I will have to have crisis come and speak with the patient. History & Record Review Discussion w/independent historian: Patient Lab Data Attestation: I reviewed the patient's lab results. Labs: Laboratory Results - last 24 hr 09/03/23 09/03/23 14:25 14:50 WBC 10.3 RBC 4.45 Hgb 13.7 Hct 40.1 MCV 90.1 MCH 30.8 MCHC 34.2 RDW Std Deviation 38.5 RDW Coeff of Peggy 11.8 Plt Count 330 MPV 10.0 Immature Gran % (Auto) 0.500 Neut % (Auto) 71.8 H Lymph % (Auto) 18.6 L Wilson % (Auto) 6.3 Eos % (Auto) 2.4 Baso % (Auto) 0.4 Absolute Neuts (auto) 7.4 Absolute Lymphs (auto) 1.92 Nucleated RBC % 0 Sodium 137 Potassium 4.2 Chloride 106 Carbon Dioxide 29.0 Anion Gap 2 L BUN 13 Creatinine 0.86 Estim Creat Clear Calc 95.59 Est GFR (MDRD) Af Amer 99 Est GFR (MDRD) Non-Af 82 BUN/Creatinine Ratio 15.0 Glucose 89 Calcium 9.4 Total Bilirubin 1.00 Direct Bilirubin 0.22 AST 12 L ALT 22 Alkaline Phosphatase 102 Total Protein 7.4 Albumin 3.6 Globulin 3.8 TSH 1.70 Urine Color Yellow Urine Clarity Sl. Cloudy Urine pH 7.0 Ur Specific [place] 1.015 Urine Protein 15 H Urine Glucose (UA) Normal Urine Ketones Negative Urine Occult Blood Negative Urine Nitrite Negative Urine Bilirubin Negative Urine Urobilinogen Normal Ur Leukocyte Esterase 25 H Ur Drug Screen Comment Ethyl Alcohol < 3.0 EKG Initial EKG: Attestation: I personally reviewed and interpreted this EKG as follows: Comments: Normal sinus rhythm ventricular rate of 71 bpm Discharge Plan Triage Chief Complaint: Suicidal ED Provider: Rolly Mora Dx/Rx/DC Orders Clinical Impression: Anxiety and depression Primary Care Provider: Care Physician,No Primary Referrals: Care Physician,No Primary [Primary Care Provider] -
[2023-09-03 14:45] LABS: Absolute Lymphocyte Count 1.92 X10^3/uL (0.83-4.51); Absolute Neutrophil Count 7.4 X10^3/uL (2.0-7.7); Basophil# 0.04 X10^3/uL; Basophil% 0.4 % (0-1); Eosinophil# 0.25 X10^3/uL; Eosinophils% 2.4 % (0-5); Hematocrit 40.1 % (37-47); Hemoglobin 13.7 g/dL (12.0-15.0); Lymphocyte # 1.92 X10^3/ul (0.83-4.51); Lymphocyte % 18.6 % (19-41); Mean Corp Hgb Conc 34.2 g/dL (32-36); Mean Corpuscular Hgb 30.8 pg (27.0-32.0); Mean Corpuscular Volume 90.1 fL (81-99); Monocyte# 0.65 X10^3/uL; Monocyte% 6.3 % (0-10); NRBC Flagged by Analyzer 0 % (0-5); Neutrophil # 7.39 X10^3/uL (2.7-7.7); Neutrophil % 71.8 % (47-70); Platelet Count 330 K/mm3 (150-450); RBC Distribution Width CV 11.8 % (11.6-14.6); RBC Distribution Width SD 38.5 fl (35.1-43.9); Red Blood Count 4.45 M/mm3 (4.2-5.4); White Blood Count 10.3 K/mm3 (4.4-11.0)
[2023-09-03 15:00] VITALS: PULSE 81; RESP 18; O2SAT 99
[2023-09-03 15:05] LABS: Alcohol, Blood (Medical)-Serum < 3.0 mg/dL
[2023-09-03 15:09] LABS: Red Blood Cells-Urine 0 SEEN /hpf (0-5)
[2023-09-03 15:19] LABS: AST(SGOT) 12 U/L (15-37); Alanine Aminotransfer ALT/SGPT 22 U/L (13-56); Albumin, Serum 3.6 g/dL (3.2-5.0); Alkaline Phosphatase 102 U/L (45-117); Anion Gap 2 (5-15); BUN 13 mg/dL (7-18); Bilirubin, Direct 0.22 mg/dL (0.00-0.30); Calcium,Total 9.4 mg/dL (8.5-10.1); Chloride 106 mmol/L (98-107); Creatinine, Serum 0.86 mg/dL (0.55-1.02); EST Glomerular Filtration Rate 82 mL/min (>60); Est Glom Filt Rate - Afr Amer 99 mL/min (>60); Estimated Creatinine Clearance 95.59 ml/min; Globulin 3.8 g/dL (2.2-4.2); Glucose 89 mg/dL (74-106); Potassium 4.2 mmol/L (3.5-5.1); Protein, Total 7.4 g/dL (6.4-8.2); Sodium Level 137 mmol/L (136-145)
[2023-09-03 15:22] LABS: Color, Urine Yellow (Yellow); Glucose, Dipstick Normal (Normal); Ketone-Dipstick Negative (Negative); Leukocyte Esterase-Dipstick 25 /ul (Negative); Nitrite-Dipstick Negative (Negative); Occult Blood-Urine Negative /ul (Negative); Protein-Dipstick 15 mg/dl (Negative); Specific Gravity, Urine 1.015 (1.002-1.030); Urine Bilirubin Dipstick Negative (Negative); Urine Clarity Sl. Cloudy (Clear); Urine Urobilinogen Normal (Normal)
[2023-09-03 15:35] LABS: Bacteria 1+ /hpf (None Seen); Mucous, Urine 1+ /hpf (<or=2+); Squamous Epithelial Cells - UA 0-5 SEEN /hpf (5-10); White Blood Cells 0-5 SEEN /hpf (0-5)
[2023-09-03 15:37] LABS: Amphetamine Urine VISTA NEGATIVE (<1000 ng/mL); Barbiturate Urine VISTA NEGATIVE (< 200 ng/mL); Benzodiazepine Urine VISTA NEGATIVE (< 200 ng/mL); Cocaine Urine VISTA NEGATIVE (< 300 ng/mL); Ecstacy Urine VISTA NEGATIVE (< 500 ng/mL); Methadone Urine VISTA NEGATIVE (< 300 ng/mL); PCP Urine VISTA NEGATIVE (< 25 ng/mL); THC Urine VISTA POSITIVE (< 50 ng/mL); Vista UDS pH Range 7
--- NOTE | 2023-09-03 15:44 | NURSING ---
CALLED CRISIS, TALKED TO PETE
== END 2023-09-03 17:41 | disposition home or self-care (01) ==
LOC: ED 13:41
PROVIDERS: Emergency Provider Emergency Medicine; Visit Provider Emergency Medicine
DX: F41.9 Anxiety disorder, unspecified (principal); F32.A Depression, unspecified; Z98.51 Tubal ligation status
CPT/HCPCS: 80048; 80076; 80307; 80320; 81001; 84443; 85025; 93005; 99283; G0480